=== PATIENT | male | born 1985 | race Caucasian/White ===

== ENCOUNTER 2019-03-28 10:16 | Emergency (ER) | payer SELFPAY ==
[2019-03-28 11:08] LABS: NEUTROPHILS # 11.3 # k/uL (1.4-7.7)
[2019-03-28] MEDS ORDERED: 0.9 % SODIUM CHLORIDE 1,000 ML IV ONE ×2 (11:12→11:50)
[2019-03-28 11:30] LABS: eGFR (Non-African) > 60
[2019-03-28] MEDS ORDERED: KETOROLAC TROMETHAMINE 30 MG/1ML VIAL IVP ONE (11:31)
[2019-03-28] MEDS ORDERED: fentaNYL CITRATE/PF 100 MCG/2 ML INJ. IV ONE (11:50)
--- NOTE | 2019-03-28 11:55 | ED Physician Documentation ---
Male Genitourinary Problems - HISTORIAN Historian: patient - HPI Stated Complaint: testicular pain Chief Complaint: Male Genitourinary Problems Onset: days ago (7) Duration: continues in ED, worse Severity: severe Further Comments: yes (33 year old male patient presents with left testicular pain. Patient reports 1 week ago episode of blood in urine, reports second episode of "orange blood" in urine a few days ago. Patient states when he got home from work last night he noticed left testicle was swollen "huge", c/o discomfort through out the day. Denies injury, denies acute onset of pain, denies heavy liftining. Reports LLQ pain. Denies N/V, denies fever or chills. Reports "yellow semen".) - Associated Symptoms Problems Urinating: blood in urine (last week), discomfort w/ urination. denies: frequent urination, burning w/ urination, urgency w/ urination, pain w/ urination Penile Discharge Descripiton: other (denies) Testicular Pain: L testicle Testicular Swelling: L testicle Penile Pain: No Penile Swelling: No Inguinal Mass: No Abdominal Pain: LLQ - Sexual History Sexual History: non-contributory, other (reports monogamous relationship) - ROS CONST: none GI/: denies: nausea, vomiting, abdominal pain, problems urinating, other MS/SKIN/LYMPH: none CVS/RESP: none EYES/ENT: none NEURO/PSYCH: denies: fainting, dizziness, tingling, numbness, anxiety, depression, other - PAST HX Past History: denies: epididymitis Allergies/Adverse Reactions: Allergies Allergy/AdvReac Type Severity Reaction Status Date / Time No Known Allergies Allergy Verified 03/28/19 10:40 Home Medications: Ambulatory Orders Medication Instructions Recorded levoFLOXacin [Levaquin] 500 mg PO DAILY #10 tablet 03/28/19 - SOCIAL HX Smoking History: cigarettes - FAMILY HX Family History: denies: none - VITAL SIGNS Vital Signs: Vital Signs Temp Pulse Resp BP Pulse Ox 98.6 F 102 H 20 144/95 97 03/28/19 10:20 03/28/19 10:20 03/28/19 10:20 03/28/19 10:20 03/28/19 10:20 - REVIEWED ASSESSMENTS Nursing Assessment Reviewed: Yes Vitals Reviewed: Yes Progress - Progress Progress: CT with contrast cancelled prior to patient leaving ER room 2. Verbal order to RT student and RT tech. New order placed in computer for CT without and with contrast. [address] abd/pelvis with contrast. Did not notify provider. Patient was taken back to CT for second scan without provider's knowledge. CT results and lab discussed with patient and . Recommended patient have ultrasound of left testicle. No US at [facility] today. Offered to set up test at [place] or [facility]. Patient prefers to go to [place]. US scheduled for 1430. Reviewed discharge instructions with patient, verbalized understanding. ED Results Lab/Radiology - Lab Results Lab Results: Lab Results 03/28/19 03/28/19 03/28/19 11:40 10:55 10:53 WBC 14.90 K/ul H K/ul (4.00-12.00) RBC 5.17 M/ul M/ul (3.90-5.20) Hgb 16.4 g/dL g/dL (12.0-18.0) Hct 48.5 % % (37.0-53.0) MCV 94.0 fl fl (80.0-100.0) MCH 31.7 pg pg (28.0-34.0) MCHC 33.8 g/dL g/dL (30.0-36.0) RDW 12.1 % % (11.3-14.3) Plt Count 197 K/mm3 K/mm3 (130-400) Neut % (Auto) 75.9 % % (39.0-79.0) Lymph % (Auto) 11.3 % L % (16.0-50.0) [place] % (Auto) 9.3 % % (0.0-11.0) Eos % (Auto) 2.5 % % (0.0-6.8) Baso % (Auto) 1.0 % % (0.0-1.5) Neut # (Auto) 11.3 # k/uL H # k/uL (1.4-7.7) Lymph # (Auto) 1.7 # k/uL # k/uL (0.6-4.0) [place] # (Auto) 1.4 # k/uL H # k/uL (0.0-0.9) Eos # (Auto) 0.4 # k/uL # k/uL (0.0-0.6) Baso # (Auto) 0.2 # k/uL # k/uL (0.0-0.5) Sodium 142 mmol/L mmol/L (137-145) Potassium 4.0 mmol/L mmol/L (3.5-5.1) Chloride 105 mmol/L mmol/L (98-107) Carbon Dioxide 26 mmol/L mmol/L (22-30) Anion Gap 15.0 mmol/L H mmol/L (3-11) BUN 16 mg/dL mg/dL (9-20) Creatinine 1.14 mg/dL mg/dL (0.66-1.25) Estimated Creat Clear 116 Est GFR ( Amer) > 60 (60 - ) Est GFR (Non-Af Amer) > 60 (60 - ) Glucose 104 mg/dL mg/dL (74-106) Calcium 9.1 mg/dL mg/dL (8.4-10.2) Total Bilirubin 0.4 mg/dL mg/dL (0.2-1.3) AST 22 U/L U/L (15-46) ALT 27 U/L U/L (13-69) Alkaline Phosphatase 80 U/L U/L (38-126) Total Protein 7.5 g/dL g/dL (6.3-8.2) Albumin 4.5 g/dL g/dL (3.5-5.0) Urine Color Yellow (YELLOW) Urine Appearance Cloudy (CLEAR) Urine pH 6.0 (5.0 - 8.0) Ur Specific [place] >=1.030 H (1.010-1.030) Urine Protein 2+ mg/dL H mg/dL (NEGATIVE) Urine Ketones Negative mg/dL mg/dL (NEGATIVE) Urine Occult Blood 1+ H (NEGATIVE) Urine Nitrite Negative (NEGATIVE) Urine Bilirubin Negative (NEGATIVE) Urine Urobilinogen 0.2 Eu Eu (0.2-1.0) Ur Leukocyte Esterase Trace H (NEGATIVE) Urine Glucose Negative mg/dL mg/dL (NEGATIVE) - Orders Orders: ED Orders Category Date Time Status CT ABD & PELVIS W & W/O CON Stat Exams 03/28/19 Taken CBC/PLATELET/DIFF Stat Lab 03/28/19 10:55 Completed CMP Stat Lab 03/28/19 10:53 Completed UA MACRO DIP ONLY Stat Lab 03/28/19 11:40 Completed URINE CULTURE Stat Lab 03/28/19 11:40 Received 0.9 % Sodium Chloride [Normal Saline] 1,000 ml Med 03/28/19 11:12 Discontinued IV NOW 0.9 % Sodium Chloride [Normal Saline] 1,000 ml Med 03/28/19 11:50 Discontinued IV NOW Ketorolac Tromethamine [Toradol] Med 03/28/19 11:31 Discontinued 30 mg IVP NOW ONE fentaNYL CITRATE/PF [Sublimaze] Med 03/28/19 11:50 Discontinued 50 mcg IV NOW ONE fentaNYL CITRATE/PF [Sublimaze] Med 03/28/19 12:40 Discontinued 50 mcg IVP NOW ONE levoFLOXacin IN DEXTROSE 5 % [Levaquin] Med 03/28/19 11:50 Discontinued 500 mg IV NOW ONE Male Genitourinary Problems - EXAM General Appearance: mild distress Abdomen: non-tender, no organomegaly, tenderness (LLQ) Genitals: testicular tenderness (left), epididymal tenderness (left), circumcised, scrotal swelling (left) Cremasteric Reflexes: left, weak EENT: eye inspection normal, ENT inspection normal, pharynx normal, no signs of dehydration, GIO, no nystagmus, TM's nml Respiratory: no resp distress, chest non-tender, breath sounds normal CVS: reg rate & rhythm, heart sounds normal, equal pulses, no murmur, no gallop, PMI nml, no JVD, no friction rub, 24 Back: non-tender, painless ROM Extremities: normal range of motion, non-tender, normal inspection, no pedal edema, no calf tenderness, normal capillary refill, pelvis stable Neuro/Psych: oriented X3, CN's nml as tested, motor nml, sensation nml, mood/affect nml Skin: normal color, warm/dry, NR, INT, PAL, DR Discharge Clincal Impression: Acute epididymitis, Left testicular pain Prescriptions: levoFLOXacin [Levaquin] 500 mg PO DAILY #10 tablet Referrals: Brenda Rivera FNP [Primary Care Provider] - 2 Days Additional Instructions: supervisor wall mirror department your prescription and start it tomorrow. Drink at least 64 oz of water daily. Avoid caffeinated beverages Stop drinking energy drinks. Excessive use of these drinks can cause cardiac palpitations and kidney stones. Tylenol every 4 hours as needed for pain/fever or ibuprofen every 6 hours as needed for pain and fever See your primary care provider for a repeat UA 48 hours after completing your antibiotic. Go to [facility] for an ultrasound of the left testicle. Appointment at 2:30, go into the main entrance. Make a follow up appointment to see your primary care provider for ER follow up. Return if your pain or symptoms become worse. Condition: Stable Disposition: 01 HOME, SELF-CARE Decision to Admit: NO Decision Time: 13:34
[2019-03-28 11:56] LABS: APPEARANCE,URINE CLOUDY (CLEAR); COLOR,URINE YELLOW (YELLOW); OCCULT BLOOD,URINE 1+ (NEGATIVE); UROBILINOGEN URINE 0.2 Eu (0.2-1.0)
[2019-03-28] MEDS ORDERED: fentaNYL CITRATE/PF 100 MCG/2 ML INJ. IVP ONE (12:40)
[2019-03-28 14:39] VITALS: BP 140/77
--- NOTE | 2019-03-28 15:53 | Diagnostic Imaging Report ---
CHANDLER SANTOS (CLINICAL EDUCATION MANAGER) - ER [facility] [id number] [facility] [address] [place], [place]. [address] Report Submission Date: Mar 28, 2019 12:54:51 PM CDT Patient Study Name: JESSICA ARANDA Date: Mar 28, 2019 12:02:50 PM CDT Modality Type: CT\SR Gender: M Description: CT ABD PELVIS W/ CON : 81 Institution: [facility] Physician: CHANDLER SANTOS (CLINICAL EDUCATION MANAGER) - ER Exam: CT abdomen and pelvis with contrast. History: Left flank pain. Axial images through the abdomen and pelvis after IV infusion of 90 cc Omnipaque 350. The visualized lower lung collazo are clear. No free intraperitoneal air is identified. The gallbladder is partially distended without stones. The liver, spleen and pancreas are normal attenuation and enhancement without space-occupying lesion. The adrenal glands are normal configuration. The abdominal aorta is of normal caliber. No periaortic lymphadenopathy is identified. Both kidneys are normal attenuation and enhancement without hydronephrosis or hydroureter. The urinary bladder is distended without intrinsic filling defect. Mild thickening to the urinary bladder wall is noted which may represent cystitis. The small bowel is of normal caliber. Air and stool seen throughout the large intestine. No inflammatory changes in the mesentery or ascites is identified. No bony abnormalities are identified. Impression: No hydronephrosis or hydroureter. Mild thickening to the urinary bladder wall could indicate cystitis. Nonspecific bowel gas pattern. No inflammatory changes in the mesentery or ascites is identified. Electronically signed on Mar 28, 2019 12:54:51 PM CDT by: Len GILLIAM
== END 2019-03-28 14:19 | disposition home or self-care (01) ==
LOC: ED 10:16
DX: N45.1 Epididymitis (principal)
CPT/HCPCS: 74178; 80053; 81002; 85025; 87086; 87491; 87591; 96361; 96374; 96375; 96376; 99285; J1885; J1956; J3010; J7030; S1016